=== PATIENT | female | born 1990 | race Caucasian/White ===

== ENCOUNTER 2018-10-22 06:56 | Outpatient (CLI) | payer BC ==
--- NOTE | 2018-10-22 07:42 | ULT ---
Gallbladder ultrasound: Multiple grayscale images of right upper quadrant obtained according to protocol. INDICATION: Pain FINDINGS: Liver: Normal Gallbladder: Normal Gallbladder wall: Normal. Woodruff's Sign: Negative Common bile duct is normal. Ascites: None IMPRESSION: Normal gallbladder.
== END 2018-10-22 06:57 | disposition home or self-care (01) ==
LOC: SCSULT 06:56
PROVIDERS: ATTEND Physician Assistant
DX: R10.11 Right upper quadrant pain (principal)
CPT/HCPCS: 76705

== ENCOUNTER 2018-11-02 12:27 | Outpatient (CLI) | payer BC ==
--- NOTE | 2018-11-02 16:25 | NM ---
HEPATOBILIARY SCAN: HISTORY: Right upper quadrant pain. No gallstones on ultrasound of 10/22/2018. RADIOPHARMACEUTICAL: Technetium 99m mebrofenin 5 millicuries injected intravenously. FINDINGS: There is good tracer extraction by the liver with prompt excretion into the biliary tract and small b owel loops and normal filling of the gallbladder. The calculated gallbladder ejection fraction, afte r an oral fatty meal, measures 62%. IMPRESSION: Normal examination. POS: OFF
== END 2018-11-02 12:28 | disposition home or self-care (01) ==
LOC: NM 12:27
PROVIDERS: ATTEND Physician Assistant
DX: R10.11 Right upper quadrant pain (principal)
CPT/HCPCS: 78227; A9537